=== PATIENT | male | born 1975 | race African-American/Black ===

== ENCOUNTER 2021-06-03 17:54 | Emergency (ER) | payer OTHER ==
[~2021-06-03] VITALS: Ht 182.9 cm; Wt 129.0 kg
[~2021-06-03 17:54] MED LIST: HYDR-3164 PO; SULF1TAB24 PO
[2021-06-03 19:40] LABS: INFLUENZA A PATIENT NEGATIVE (NEGATIVE); INFLUENZA B PATIENT NEGATIVE (NEGATIVE)
[2021-06-03] MEDS: ACETAMINOPHEN 500 MG TABLET PO ONE (20:53)
[2021-06-03] MEDS: cloNIDine HCL 0.1 MG TABLET PO ONE (20:54)
--- NOTE | 2021-06-03 21:36 | RAD ---
XR CHEST 1V Clinical Indication: Reason: fever / Spl. Instructions: / History: Comparison: None. Findings: The cardiomediastinal silhouette is normal. Lungs are clear. There is no pneumothorax. No pleural eff usion is appreciated. No acute bone abnormality. IMPRESSION: No acute cardiopulmonary process. Electronically signed by: Angelito Chávez MD (06/03/2021 9:34 PM) [facility]
[2021-06-03 21:41] VITALS: BP 120/60
--- NOTE | 2021-06-03 21:51 | PHYS DOC ---
Past Medical History Past Medical History: No Pertinent History (JOE RAYO CNC MILL OPERATOR) Past Surgical History: Other Additional Past Surgical Histo: Elbow, wrist (JOE RAYO CNC MILL OPERATOR) Smoking Status: Current Every Day Smoker Alcohol Use: Occasionally Drug Use: None (JOE RAYO CNC MILL OPERATOR) General Adult EDM: Chief Complaint: FLU SYMPTOM HPI: HPI: Patient is a 45 year old male who presents to the ED today complaining of a mild generalized headache with chills, symptoms began yesterday. Patient denies any coughing or congestion. Denies anything specifically exacerbating or relieving his pain. Denies any neck pain. (JOE RAYO CNC MILL OPERATOR) Review of Systems: Review of Systems: Constitutional: Reports chills, denies fever Eyes: Denies change in visual acuity. [] HENT: Denies nasal congestion or sore throat. [] Respiratory: Denies cough or shortness of breath. [] Cardiovascular: Denies chest pain or edema. [] GI: Denies abdominal pain, nausea, vomiting, bloody stools or diarrhea. [] : Denies dysuria. [] Musculoskeletal: Denies back pain or joint pain. [] Integument: Denies rash. [] Neurologic: Reports headache, denies focal weakness or sensory changes. [] Psychiatric: Denies depression or anxiety. [] (JOE RAYO CNC MILL OPERATOR) Heart Score: C/O Chest Pain: N/A Risk Factors: Risk Factors: DM, Current or recent (<one month) smoker, HTN, HLP, family history of CAD, obesity. Risk Scores: Score 0 - 3: 2.5% MACE over next 6 weeks - Discharge Home Score 4 - 6: 20.3% MACE over next 6 weeks - Admit for Clinical Observation Score 7 - 10: 72.7% MACE over next 6 weeks - Early Invasive Strategies (JOE RAYO [employer] MILL OPERATOR) Current Medications: Current Medications Medications (Trade) Dose Ordered Sig/Estrella Start Time Stop Time Status Last Admin Dose Admin Acetaminophen (Tylenol) 1,000 mg 1X ONCE 06/03/21 20:30 06/03/21 20:31 DC 06/03/21 20:53 1,000 MG Clonidine HCl (Catapres) 0.2 mg 1X ONCE 06/03/21 20:30 06/03/21 20:31 DC 06/03/21 20:54 0.2 MG (JOE RAYO [employer] MILL OPERATOR) Allergies: Allergies: Allergies Coded Allergies Type Severity Reaction Last Updated Verified No Known Drug Allergies 04/21/14 No (JOE RAYO [employer] MILL OPERATOR) Physical Exam: PE: Constitutional: Well developed, well nourished, no acute distress, non-toxic appearance. [] HENT: Normocephalic, atraumatic, bilateral external ears normal, oropharynx moist, no oral exudates, nose normal. [] Eyes: PERRLA, EOMI, conjunctiva normal, no discharge. [] Neck: Normal range of motion, no tenderness, supple, no stridor. [] Cardiovascular:Heart rate regular rhythm, no murmur [] Lungs & Thorax: Bilateral breath sounds clear to auscultation [] Abdomen: Bowel sounds normal, soft, no tenderness, no masses, no pulsatile masses. [] Skin: Warm, dry, no erythema, no rash. [] Back: No tenderness, no CVA tenderness. [] Extremities: No tenderness, no cyanosis, no clubbing, ROM intact, no edema. [] Neurologic: Alert and oriented X 3, normal motor function, normal sensory function, no focal deficits noted. Cranial nerves II through XII intact Psychologic: Affect normal, judgement normal, mood normal. [] (JOE RAYO C[employer] MILL OPERATOR) Current Patient Data: Labs: Laboratory Tests Test 06/03/21 19:15 Influenza Type A Antigen Negative (NEGATIVE) Influenza Type B Antigen Negative (NEGATIVE) SARS-CoV-2 Antigen (Rapid) Negative (NEGATIVE) Vital Signs: Vital Signs Date Time Temp Pulse Resp B/P (MAP) Pulse Ox O2 Delivery O2 Flow Rate FiO2 06/03/21 20:54 110 164/78 06/03/21 19:05 99.6 17 97 Room Air 99.6 (JOE RAYO CNC MILL OPERATOR) EKG: EKG: [] (JOE RAYO CNC MILL OPERATOR) Radiology/Procedures: Radiology/Procedures: []PROCEDURE: CHEST AP ONLY XR CHEST 1V Clinical Indication: Reason: fever / Spl. Instructions: / History: Comparison: None. Findings: The cardiomediastinal silhouette is normal. Lungs are clear. There is no pneumothorax. No pleural effusion is appreciated. No acute bone abnormality. IMPRESSION: No acute cardiopulmonary process. Electronically signed by: Angelito Berg MD (06/03/2021 9:34 PM) [facility] DICTATED and SIGNED BY: ANGELITO BERG MD DATE: 06/03/21 [id number] (JOE RAYO APRN) Course & Med Decision Making: Course & Med Decision Making Pertinent Labs and Imaging studies reviewed. (See chart for details) This a 45-year-old male presenting today complaining of chills and headache, symptoms since yesterday. Vitals on arrival to the ED temperature 99.6, heart rate 111, blood pressure 174/114, states he might have history of hypertension. O2 sats 97% on room air. Negative influenza AMB, negative rapid Covid test, negative chest x-ray. Discharge to home. Supportive care measures recommended. (JOE RAYO APRN) Course & Med Decision Making Patients Care and treatment plan provided by ER Nurse Practitioner. I was available for consult. Patient's chart reviewed. (BENI KIMBALL DO) Dragon Disclaimer: Ben Disclaimer: This electronic medical record was generated, in whole or in part, using a voice recognition dictation system. (JOE RAYO APRN) Departure Departure Impression: Primary Impression: Headache Qualified Codes: R51.9 - Headache, unspecified Additional Impressions: Chills High blood pressure Qualified Codes: I10 - Essential (primary) hypertension Fever Qualified Codes: R50.9 - Fever, unspecified Tachycardia Disposition: 01 HOME / SELF CARE / HOMELESS Condition: STABLE Referrals: NO PCP (PCP) follow up with your doctor in one week Patient Instructions: Headache, FAQs Additional Instructions: You were evaluated in the emergency room, your chest x-ray is negative for any acute findings, your rapid influenza a and B test are negative. Your rapid Covid test is negative. Your PCR Covid test is pending. We will call you when results are available. Please quarantine yourself until you get results from us. Maintain good hygiene, rest, push fluids. Take Tylenol or Motrin for pain or fever. Your blood pressure was also running slightly high. Please contact one of the doctors provided and follow-up with them as an outpatient JOE RAYO APRN Jun 03, 2021 21:51 BENI KIMBALL DO Jun 04, 2021 03:47
--- NOTE | 2021-06-04 17:21 | NUR ---
IP: Informed pt of negative covid test. Pt verbalized understanding.
== END 2021-06-03 22:16 | disposition home or self-care (01) ==
LOC: ER 17:54
DX: R51.9 Headache, unspecified (principal); I10 Essential (primary) hypertension; R50.9 Fever, unspecified; R00.0 Tachycardia, unspecified; Z20.822 Contact with and (suspected) exposure to COVID-19
CPT/HCPCS: 71045; 87426; 87804; 99285; U0003; U0005

== ENCOUNTER 2021-06-05 08:10 | Emergency (ER) | payer OTHER ==
[~2021-06-05] VITALS: Ht 182.9 cm; Wt 128.8 kg
--- NOTE | 2021-06-05 08:33 | ED.ADGEN ---
Past Medical History Past Medical History: No Pertinent History Past Surgical History: Other Additional Past Surgical Histo: Elbow, wrist Smoking Status: Current Every Day Smoker Alcohol Use: Occasionally Drug Use: None General Adult EDM: Chief Complaint: LOWER EXT PAIN HPI: HPI: Patient is a 45-year-old male who arrives ambulatory to the emergency department complaint of left lower extremity pain and swelling. Patient reports a history of blood clots and has concerns that he may have one. Patient states he was evaluated in this emergency department 2 days previously for being short of air and having chest pain. Patient states he recently returned from vacation from the [facility] in which he traveled by car. Patient reports after being evaluated here 2 days previously he was found to be negative for Covid and did not require admission otherwise. Patient states however he is concerned as it relates to his trip and his lower extremity pain that he may have a clot present. He denies any chest pain today. He further denies any known fevers or shortness of air. He is awake, alert and nontoxic-appearing Review of Systems: Review of Systems: Constitutional: Denies fever or chills. [] Eyes: Denies change in visual acuity. [] HENT: Denies nasal congestion or sore throat. [] Respiratory: Denies cough or shortness of breath. [] Cardiovascular: Denies chest pain or edema. [] GI: Denies abdominal pain, nausea, vomiting, bloody stools or diarrhea. [] : Denies dysuria. [] Musculoskeletal: Reports left lower extremity pain and swelling. Denies back pain or joint pain. [] Integument: Denies rash. [] Neurologic: Denies headache, focal weakness or sensory changes. [] Endocrine: Denies polyuria or polydipsia. [] Lymphatic: Denies swollen glands. [] Psychiatric: Denies depression or anxiety. [] Allergies: Allergies: Allergies Coded Allergies Type Severity Reaction Last Updated Verified No Known Drug Allergies 04/21/14 No Physical Exam: PE: Constitutional: Well developed, well nourished, no acute distress, non-toxic appearance. [] HENT: Normocephalic, atraumatic, bilateral external ears normal, oropharynx moist, no oral exudates, nose normal. [] Eyes: PERRLA, EOMI, conjunctiva normal, no discharge. [] Neck: Normal range of motion, no tenderness, supple, no stridor. [] Cardiovascular:Heart rate regular rhythm, no murmur [] Lungs & Thorax: Bilateral breath sounds clear to auscultation [] Abdomen: Bowel sounds normal, soft, no tenderness, no masses, no pulsatile masses. [] Skin: Warm, dry, no erythema, no rash. [] Back: No tenderness, no CVA tenderness. [] Extremities: Patient has calf tenderness of the left lower extremity. There is otherwise no cyanosis, no clubbing, ROM intact, no edema. [] Neurologic: Alert and oriented X 3, normal motor function, normal sensory func tion, no focal deficits noted. [] Psychologic: Affect normal, judgement normal, mood normal. [] Current Patient Data: Labs: Laboratory Tests Test 06/05/21 08:40 Influenza Type A Antigen Negative (NEGATIVE) Influenza Type B Antigen Negative (NEGATIVE) SARS-CoV-2 Antigen (Rapid) Negative (NEGATIVE) Vital Signs: Vital Signs Date Time Temp Pulse Resp B/P (MAP) Pulse Ox O2 Delivery O2 Flow Rate FiO2 06/05/21 10:08 103 18 151/91 (111) 97 Room Air 06/05/21 08:22 100.3 100.3 EKG: EKG: [] Heart Score: C/O Chest Pain: No Risk Factors: Risk Factors: DM, Current or recent (<one month) smoker, HTN, HLP, family history of CAD, obesity. Risk Scores: Score 0 - 3: 2.5% MACE over next 6 weeks - Discharge Home Score 4 - 6: 20.3% MACE over next 6 weeks - Admit for Clinical Observation Score 7 - 10: 72.7% MACE over next 6 weeks - Early Invasive Strategies Radiology/Procedures: Radiology/Procedures: [][facility] [address] [place], [place] [id number] IMAGING REPORT Signed PATIENT: LIDYA HORTON ACCOUNT: [id number] : 1975 LOCATION: ER AGE: 45 SEX: M EXAM STATUS: PRE ER ORD. PHYSICIAN: STEPHANIE DIAZ DO REASON: swelling/pain PROCEDURE: VENOUS LOWER EXTREMITY LEFT Examination: LEFT LOWER EXTREMITY - UNILATERAL VENOUS DOPPLER Technique: Ultrasound evaluation of the left lower extremity was performed from the groin to the upper calf with caceres scale, spectral and color doppler ev aluation. Indication: Leg swelling Comparison: None Findings: There is normal venous flow and compressibility of left common femoral vein, femoral vein, popliteal vein, and visualized proximal calf veins. Left inguinal lymph node measures 2.9 x 1.4 cm. Impression: 1. No evidence for deep vein thrombosis of left lower extremity from the level of the calf veins to the groins. 2. Enlarged left inguinal lymph node measuring 2.9 x 1.4 cm, possibly reactive. Recommend close attention on follow-up to ensure resolution. Electronically signed by: Lavelle Washington MD (06/05/2021 8:47 AM) [id number] DICTATED and SIGNED BY: LAVELLE WASHINGTON MD DATE: 06/05/21 [id number] Course & Med Decision Making: Course & Med Decision Making Pertinent Labs and Imaging studies reviewed. (See chart for details) [] Dragon Disclaimer: Ben Disclaimer: This electronic medical record was generated, in whole or in part, using a voice recognition dictation system. Departure Departure Impression: Primary Impression: Lower extremity pain Additional Impression: Viral syndrome Disposition: HOME / SELF CARE / HOMELESS Condition: STABLE Referrals: NO PCP (PCP) Patient Instructions: Musculoskeletal Pain, Viral Syndrome Scripts Naproxen (NAPROSYN) 500 Mg Tablet 1 TAB PO BID for pain for 5 Days, #10 TAB Prov: STEPHANIE DIAZ DO 06/05/21 Problem Qualifiers STEPHANIE DIAZ DO Jun 05, 2021 08:33
--- NOTE | 2021-06-05 08:49 | RAD ---
Examination: LEFT LOWER EXTREMITY - UNILATERAL VENOUS DOPPLER Technique: Ultrasound evaluation of the left lower extremity was performed from the groin to the uppe r calf with caceres scale, spectral and color doppler evaluation. Indication: Leg swelling Comparison: None Findings: There is normal venous flow and compressibility of left common femoral vein, femoral vein, popliteal vein, and visualized proximal calf veins. Left inguinal lymph node measures 2.9 x 1.4 cm. Impression: 1. No evidence for deep vein thrombosis of left lower extremity from the level of the calf veins to the groins. 2. Enlarged left inguinal lymph node measuring 2.9 x 1.4 cm, possibly reactive. Recommend close atte ntion on follow-up to ensure resolution. Electronically signed by: Lavelle Rivera MD (06/05/2021 8:47 AM) [email or web address]
[2021-06-05 09:31] LABS: INFLUENZA A PATIENT NEGATIVE (NEGATIVE); INFLUENZA B PATIENT NEGATIVE (NEGATIVE)
[2021-06-05] MEDS ORDERED: NAPR-683 PO (09:53)
[2021-06-05 10:08] VITALS: BP 151/91
== END 2021-06-05 10:09 | disposition home or self-care (01) ==
LOC: ER 08:10
DX: B34.9 Viral infection, unspecified (principal); M79.605 Pain in left leg; Z20.822 Contact with and (suspected) exposure to COVID-19; R59.0 Localized enlarged lymph nodes; F17.200 Nicotine dependence, unspecified, uncomplicated
CPT/HCPCS: 87426; 87804; 93971; 99284; U0003; U0005